=== PATIENT | female | born 1930 | race Caucasian/White ===

== ENCOUNTER 2017-01-18 12:13 | Emergency (ER) | payer OTHER, BC ==
[~2017-01-18] VITALS: Ht 157.5 cm; Wt 69.4 kg
[~2017-01-18 12:13] MED LIST: ADULT LOW DOSE81 M1 PO; ASPIR 8181 M1 PO; CALAN120 MG PO; CALTRATE PLUS1 EACH PO; CEFTIN250 MG PO; CENTRUM SILVER1 EAC3 PO; HYDROCHLOROTH12.5 M1 PO; LEVOTHYROXINE50 MCG PO; LEVOTHYROXINE75 MCG PO; LISINOPRIL10 MG PO; NOLVADEX20 MG PO; NORCO 5/3251 TABLET PO; PRADAXA150 MG PO; PRESERVISION T1 EACH PO; VERAPAMIL HCL120 MG PO; VITAMIN D PO; VITAMIN D2400 UNIT PO
[2017-01-18] MEDS ORDERED: PRESERVISION T1 EACH PO (12:45)
[2017-01-18] MEDS ORDERED: FLECAINIDE ACET50 MG PO (12:47)
[2017-01-18] MEDS ORDERED: RED YEAST RICE600 M1 PO (12:48)
[2017-01-18 14:10] LABS: EOSINOPHIL COUNT 0.1 K/uL (0-0.3); HEMATOCRIT 37.1 % (36.0-46.0); IMMATURE GRANULOCYTE (%) 0.6 % (0.0-0.7); INSTRUMENT ABS NEUTROPHIL CT 4.6 K/uL; LYMPHOCYTE COUNT 1.5 K/uL (1.0-2.8); MCH 31.7 PG (29.0-34.0); MCHC 32.6 G/DL (30.0-36.0); MCV 97.1 FL (83-99); MEAN PLAT.VOLUME 10.8 uM^3 (9.5-12.4); MONOCYTE (%) 11.4 % (3-12); MONOCYTE COUNT 0.8 K/uL (0-0.8); NEUTROPHIL (%) 64.6 % (45-76); NEUTROPHIL COUNT 4.6 K/uL (1.8-6.4); PLATELET COUNT 226 K/uL (156-360); RBC DIS.WIDTH-CV 12.2 % (11.8-14.6); RBC DIS.WIDTH-SD 43.3 % (39-53); RED BLOOD COUNT 3.82 M/uL (3.80-5.20); WHITE BLOOD COUNT 7.1 K/uL (4.1-10.2)
[2017-01-18 14:18] LABS: CHLORIDE 105 mEq/L (99-109); POTASSIUM 4.9 mEq/L (3.7-5.4); SODIUM 138 mEq/L (136-147)
[2017-01-18 14:19] LABS: GLUCOSE 78 mg/dL (70-99)
[2017-01-18 14:21] LABS: ANION GAP 8 MEQ/L (2-14)
[2017-01-18 14:23] LABS: GFR ESTIMATE (CALCULATED) > 59 mL/min/
[2017-01-18 14:24] LABS: UREA NITROGEN (BUN) 17 mg/dL (9-23)
[2017-01-18 14:47] LABS: ADD MIUA? NO; BILIRUBIN NEGATIVE; BLOOD NEGATIVE; COLOR YELLOW ((YELLOW)); GLUCOSE (STRIP) NEGATIVE; KETONES NEGATIVE; LEUKOCYTES NEGATIVE; NITRITE NEGATIVE; PROTEIN (STRIP) NEGATIVE; SPECIFIC GRAVITY 1.013 (1.000-1.030); UCUL ADDED? NO; UROBILINOGEN 0.2 MG/DL (0.2-1.0)
[2017-01-18 14:59] VITALS: BP 132/76
== END 2017-01-18 15:00 | disposition home or self-care (01) ==
LOC: EME 12:13
PROVIDERS: Emergency Medicine
DX: I48.91 Unspecified atrial fibrillation (principal); E78.5 Hyperlipidemia, unspecified; Z87.891 Personal history of nicotine dependence
CPT/HCPCS: 80048; 81003; 85025; 93005; 99281; 99284